=== PATIENT | female | born 1955 | race Caucasian/White ===

== ENCOUNTER 2025-04-29 13:30 | Outpatient (CLI) | payer MEDICARE, BC, SELFPAY ==
--- OUTSIDE RECORDS SUMMARY | 2022-03-07 08:46 | XMS_ITS | Continuity of Care Document ---
Author Organization [facility] Address [address] [place] [address] Phone Care Team Providers Care Braze Operator Name Role Phone Celso Pace MD Unavailable Unavailable Allergies, Adverse Reactions, Alerts Substance Reaction Status Criticality No Known Allergies Active No Inform ation Medications Medication Instructions Dosage Effective Dates (start - stop) Status Comments fluoxetine 10 mg capsule take 1 capsule by oral route every day 10 MG - Active aspirin 325 mg tablet take 2 tablet by o ral route 5 times every day 650 MG - Active cranberry 400 mg capsule - Active oxycodone 5 mg tablet take 1 Tablet by O RAL route 3 times every day as needed for moderate to severe pain 5 - Active simvastatin 20 mg tablet take 1 tablet by oral route every day in the evening 20 MG - Active Procedures Procedure Date New Pt Eval 45 Min Advance Directives Directive Yes / No Effective Date File Name No Information Encounters Encounter Description Practice Location Reason(s) For Visit Diagnoses Date Provider Providers Copied on Encounter [facility], [address], [place], [place], [id number], [place] tel:[phone] [facility] No Information Sanjeev Houston. [address], [place], [place], [id number], [place]. tel:[phone] Referring Provider: Dalton Rowland MD, [address] [facility], [place], [address]. tel:[phone] New Pt Eval 45 Min [facility], [address], [place], [place], [id number], [place] tel:[phone] [facility] back pain (chief complaint) Low back pain, unspecifiedRadiculo ratna, lumbar regionPain in hipPostlaminectomy syndrome [address] [place]. [address] [facility] [address], [place], [id number], [place]. tel:[phone] Referring Provider: Dalton Rowland MD, [address] [facility], [place], [address]. tel:[phone] Family History Family Member Type Diagnosis Age At Onset Father Problem stroke Brother Problem Other Sister Problem malignant neoplasm of male b reast Sister Problem Other Mother Problem Other Payers Payer name Insurance type Covered alliance party ID Jose soto(s) [employer] Cross Medicare 16 [id number] Social History Type Description Quantity Date Captured Comments Sex Female Smoking Status No Information Chief Complaint And Reason For Visit No Information Reason For Referral Reason For Referral No Information Plan Of Treatment Date Type Action Status Goal Tobacco cessation counseling completed Referral Ordered: Cara BAUTITSA, PHD, [place] [facility] : Neurological Surgery (related to Low back pain, unspecified) ordered Referral Referred To: [address] [place], [phone] Ordered: Referrals: Neurology ordered Referral Referred To: transforaminal LESI Ordered: transforaminal LESI on both sides L2-3 ordered Referral Ordered: Disclose - Sam Med Recs: Send patient history to Dr. Marroquin ordered Referral Referred To: Cara BAUTISTA, PHD, [place] [address] [facility] [address] [place], [phone] Ordered: Referrals: [facility] : Neurological Surgery. Cara BAUTISTA, PHD, [place] ordered Referral Ordered: Obtain - Outside Med Recs: Obtain medical records fro Dr. Still at [facility] ordered History Of Present Illness Encounter Date Complaint History Of Prese nt Illness back pain Location of pain is lower back. Pain is radiated to the left calf, right calf, left foot, right foot, left thigh and right thigh.The patient describes the pain as an ache, burning and sharp. Symptoms are aggravated by bending, daily activities, lifting, sitting, standing and walking. Symptoms are relieved by ice and pain meds/drugs. Functional Status Date Functional Assessmen t No Information Instructions Date Instruction Additional Infor mation Same plan of care as statement for above diagnosis, no changes Related to Postlaminectomy syndrome Same plan of care as statement for above diagnosis, no changes Related to Radiculopathy, lumbar region Same plan of care as statement for above diagnosis, no changes Related to Pain in hip - Order a transforam inal lumbar epidural steroid injection at bilateral L2,3- Will send a referral to Dr. Marroquin for a second opinion - Meet with implant team to discuss implantable devices - Obtain records from Dr. Still at [facility] - Follow up with CHERYL in one month Related to Low back pain, unspecified Assessments Type Assessment Date No Information Patient Care Teams Name Effective Dates (start - stop) Status Members No Information
--- OUTSIDE RECORDS SUMMARY | 2025-04-02 16:23 | XMS_ITS | Encounter Summary ---
Author Organization 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 Bleeding did stop after about an hour but restarted a half hour ago at 1545. Denies hitting the nose and pain. Encounter Details Date Type Department Care Team (Late st Contact Info) Description 04/02/2025 4:23 PM CDT - 04/02/2025 5:37 PM CDT Emergency [facility] [address] [place] [phone] Arcadio Herrmann APRN, C.N.P., D.N.P. 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N.P. - 04/02/2025 5:11 PM CDT Leave your nose alone for 2 days. Do not sneeze, blow your nose or touch/manipulate your nose. If packing was placed, leave this in place until appropriate follow up. If you start bleeding again, sit in a chair, apply nose clips as shown, place ice or cool pack across bridge of nose and face and wait for 20 minutes. Remove clips. If you continue to bleed, return to the ED or follow up with PMD. After 2 days, follow the nasal hygiene instructions below. Nasal Hygiene: The nose has many positive effects on the air you breathe in that you may not be aware of. - Temperature regulation - Filtration and removal of particulate matter - Humidification - Defense against infections There are several things you can do to help keep your nose healthy. Foremost is nasal hygiene. This will help with your nose's natural function and keep it moist and healthy. 1. Use nasal saline daily. You can buy small bottles of this over the counter at the drug store or grocery store. Some brand names are Loyal, Sea Mist, [place]. Apply 2-3 sprays each nostril several times a day. If your nose feels dry or have had recent nasal surgery, try to use it every couple of hours. There is no medicine in it so it can be used as often as you like. Do NOT use the sprays containing decongestants. The appropriate way to apply nasal sprays: Place the nozzle just inside your nostril and point it towards the corner of your eye. Often it is helpful to use the right hand to spray into the left nasal cavity and use the left hand to spray into the right side. 2 Use Vaseline petroleum jelly or Aquaphor. You can apply this gently to each nostril 2-3 times a day to promote moisturization for your nose. These can all be bought over the counter. 3. Consider using a humidifier at home. If your nose feels dry and/or you have frequent nosebleeds,you can buy a humidifier for your home. Be cautious in using these if you have mold allergies. 4. Avoid excessive manual manipulation of your nose and nostrils. Frequent rubbing of your nostrilsand the passing of tissues or fingers in your nostrils may aggravate nasal irritation from dryness and nosebleeds. Any further bleeding r apply the nasal clamp, wait for 30 minutes, if you bleed after 30 minutes with a nasal clamp off, he will have to return to the emergency department. Thank you for utilizing [facility] for your care! * Attachments The following attachments cannot be sent through Care Everywhere. * Nosebleed Adult (Angolan) documented in this encounter Medications at Time of Discharge aspirin [address] tablet Take 1 tablet by mouth daily. cranberry 400 mg capsule Cranberry oral tablet See Instructions, pateint unsure of dose but takes 3 pills in am and 3 pills in pm 09/21/2012 FLUoxetine (PROzac) 40 mg capsule 01/24/2025 gabapentin (Neurontin) 100 mg capsule Take 100 mg by mouth. 05/19/2024 oxyCODONE (Roxicodone) 10 mg IR tablet Take 10 mg by mouth daily as needed. 08/11/2024 simvastatin (Zocor) 40 mg tablet Take one a day for cholesterol 06/22/2014 FLUoxetine (PROzac) 20 mg capsule Take 20 mg by mouth daily. documented as of this encounter Procedure Notes * Arcadio Herrmann APRN, C.N.P., D.N.P. - 04/02/2025 4:45 PM CDTAssociated Order(s): Epistaxis Management Procedure Epistaxis Management Performed by: Arcadio Herrmann APRN, C.N.P., oMnse.N.P. Authorized by: Arcadio Herrmann APRN, Susy.N.P., D.N.P. PROCEDURE DETAILS Treatment method: anterior pack and nasal clamp Treatment complexity: simple Subsequent visit: no CONSENT Consent obtained: verbal Consent given by: patient The benefits, risks and alternatives to the procedure and the potential need for sedation or anesthesia as well as the names, roles, and responsibilities of healthcare team members performing significant interventional tasks were discussed with the patient and/or decision maker. UNIVERSAL PROTOCOL All relevant documentation and testing were reviewed and available. All required blood products, implants, devices and or special equipment were made available as applicable. Pre-procedure verification was conducted and the correct site was marked if required. A fire risk and smoke assessment were done as applicable. The procedural time-out to verify correct patient, correct side/site, and procedure was conducted prior to performing the procedure and confirmed in a procedural pause. PRE-PROCEDURE DETAILS Indications: nose bleed Treatment site: left anterior and left septum SEDATION / ANESTHESIA Anesthesia method: topical application Topical anesthesia: Lidocaine with epinephrine, Afrin, TXA, mixed one-to-one. POST-PROCEDURE DETAILS Assessment: bleeding stopped Procedure completed successfully: yes Complications: no immediate complication Arcadio Herrmann APRN, Susy.N.P., D.N.P. 04/02/25 1646 documented in this encounter ED Notes * Arcadio Herrmann APRN, Susy.N.P., D.N.P. - 04/02/2025 4:22 PM CDT Images from the original note were not included. CHIEF COMPLAINT/REASON FOR VISIT Epistaxis (Nose Bleed) (Patient had a nose bleed that began this morning at 0300. Bleeding did stopafter about an hour but restarted a half hour ago at 1545. Denies hitting the nose and pain. ) HISTORY OF PRESENT ILLNESS Patient presents to the emergency department with a history of a fractured neck with a nosebleed. She had patient states she was awakened at 3 in the morning with some postnasal drip. She got up and spit in the bathroom, noticed it was bright red blood. Then she started bleeding from her left nares. After about 20 minutes of just leaving it alone the bleeding stopped, she went back to bed, she got up today, was just lying on the couch and then she again felt bleeding in the back of her throat. This is about 3:00 a.m. this afternoon, and it continued to bleed since that time. Patient has had adifficulty getting it to stop. She presents now to the emergency department for further evaluation and care. On arrival to the emergency department nursing had the patient blow out all of her clots, and applied a epistaxis nasal clamp. Patient denies any anticoagulation history. She states this is her first bloody nose. History provided by: Patient interpreter for the deaf needed/used: no REVIEW OF SYSTEMS Constitutional: Negative for chills, diaphoresis, fatigue and fever. HENT: Positive for nosebleeds. Negative for sinus pressure and sore throat. Respiratory: Negative for cough, chest tightness and shortness of breath. Cardiovascular: Negative for chest pain. Gastrointestinal: Negative for abdominal pain, constipation, diarrhea, nausea and vomiting. Genitourinary: Negative for dysuria, frequency and urgency. Musculoskeletal: Negative for arthralgias and myalgias. Skin: Negative for rash. Neurological: Negative for dizziness, weakness and headaches. Hematological: Negative for adenopathy. Does not bruise/bleed easily. All other systems reviewed and are negative. Allergies Reviewed in medical record Current Medications Reviewed in Medical Record. PAST HISTORY Medical Medical History[1] Problem List[2] Surgical Surgical History[3] Family Reviewed in Medical Record Social History Social History Tobacco Use Smoking status: Every Day Current packs/day: 1.00 Types: Cigarettes Smokeless tobacco: Never Substance Use Topics Alcohol use: No Social History Substance and Sexual Activity Drug Use Yes Types: Marijuana Comment: Medical marijuana OBJECTIVE Initial Vital Signs / Weights Initial Vitals [04/02/25 1630] Temperature 36.7 ??C Pulse Rate 79 Heart Rate Resp Rate 22 Blood Pressure (!) 141/96 SpO2 95 % Pain Score 0 - No pain Wt Readings from Last 3 Encounters: 04/02/25 76.9 kg 09/06/24 74.8 kg 09/23/24 75 kg PHYSICAL EXAMINATION Constitutional: Nursing note and vitals reviewed. No distress. HENT: Nose: Nasal discharge present. Mouth/Throat: Oropharynx is clear and moist. Mucous membranes are moist. No tonsillar exudate. Presents with left naris bleeding. Nursing applied and nasal clamp for epistaxis, on my examinationthe bleeding had slowed considerably. Please see procedure note. No bleeding in the back of her throat. No bleeding noted the right nares. Blood pressure is 156/75. Eyes: Conjunctivae are normal. Pupils are equal, round, and reactive to light. Neck: Neck supple. Cardiovascular: Normal rate. Pulses are strong and palpable. Capillary refill: takes less than 3 seconds Pulmonary/Chest: Effort normal. No respiratory distress. Musculoskeletal: General: Normal range of motion. Cervical back: Normal range of motion and neck supple. Lymphadenopathy: She has no cervical adenopathy. Neurological: Alert and oriented to person, place, and time. Skin: Skin is warm, dry and intact. Psychiatric: She has a normal mood and affect. DIAGNOSTICS Procedures Epistaxis management See separate procedure note. ED COURSE ED Course as of 04/02/25 173 Dinorah April 02, 2025 162 I performed my initial evaluation of the patient. We discussed Emergency Department course including testing, treatment, and potential disposition based on findings. 1650 TXA, lidocaine with epinephrine, Afrin all mixed one-to-one on a cotton pledget was inserted into her left naris and then re clamp with an epistaxis clamp for 30 minutes for bleeding control as well as anesthesia. 1707 Packing removed from the left naris, no active bleeding appreciated. No clots sign or area to go after with cautery. As long as that is not bleeding will leave it be. Patient was given a clean nasal clamp, we discussed how to stop bleeding moving forward with blowing the blood clots out, applying the nasal clamp, and then ice over the nose and forehead, leaving that in place for 30 minutes by the clock, and removing the clamp after that, if she continues to bleed she will have to return tothe emergency department. 1726 No further nasal or bleeding noted in the back of the throat. I discussed the plan for discharge with the patient, and patient/family is agreeable. I discussed with patient the utility, limitations, and findings of the exam/interventions/studies done during this visit as well as the list of dif ferential diagnosis. Patient understands provisional nature of this diagnosis and need for follow up. We discussed the plan of care, including supportive cares. We also discussed symptoms to monitor and symptoms that should prompt them to return for re-evaluation including new or worsening symptoms. All questions and concerns addressed. Patient to be discharged by RN. Final Diagnoses: as of 04/02/251736 Epistaxis - Left nares INTERVENTIONS Medications oxymetazoline 0.05 % nasal spray 2 spray (Afrin) (2 sprays each nostril Given 04/02/251732) lidocaine-EPINEPHrine 1 %-1:100,000 injection 10 mL (Xylocaine w/epi) (10 mL infiltration Given 04/02/251732) tranexamic acid injection 500 mg (Cyklokapron) (500 mg inhalation Given 04/02/251732) MEDICAL DECISION MAKING Assessment and Plan Patient presents to the emergency department with epistaxis. Symptoms for started at 3 in the morning. It stopped after about 20 minutes, then restarted at 3:00 a.m. this afternoon. She has been unable to get it to stop, so she presented to the emergency department for further evaluation. Differential diagnosis includes but not limited to; nasal foreign body, nasal trauma, polyps, spontaneous klebsiella plexus bleed, supratherapeutic INR with anticoagulant therapy, sinusitis, tumor, or others. The patient forcibly blew their nose into Kleenex to remove clotted blood. A 1 inch derick soaked inAfrin spray mixed with 1 G of TXA and 10 ml of 1% lidocaine with epi (mixed 1:1) was then packed into the appropriate nare. Nasal clamp applied. This was left in place for 45 minutes. The bleeding site was found to be located left anterior nares. Hemostasis was achieved with TXA, Afrin, lidocaine with epi on a cotton pledget and then packed in the left nares Observed for 20 minutes, no further bleeding noted in posterior pharynx. Patient ok for discharge and clinic follow up as needed Red flag symptoms were also reviewed with the patient that should return them to the ED including but not limited to; reoccurrence of bleeding if not controlled with 20 minutes of nasal clamping, fever, chills, sweats, headache or any other worrisome symptoms. . DIFFERENTIAL DIAGNOSES As above. PROBLEMS ADDRESSED THIS VISIT As above. Care is significantly affected by the following Social Determinants of Health: Housing in security. I reviewed the following external records: primary care records, prior outpatient labs, prior outpatient radiology tests and inpatient records. DIAGNOSIS Final diagnoses: [R04.0] Epistaxis - Left nares DISPOSITION Home or Self Care DISCHARGE/TRANSFER VITAL SIGNS Vitals: 04/02/25 1715 BP: 131/69 Pulse: 75 Resp: Temp: SpO2: 94% ED DISCHARGE MEDS ED Prescriptions None FOLLOW UP Contact Information for Follow-ups None Reported, Pcp Specialty: Family Medicine, Internal Medicine, Geriatrics, Women's Health, Internal Medicine Relationship: PCP - General Next Steps: Follow up in 1 week(s) Instructions: As needed Arcadio Herrmann, LANDEN, RANGELAND MANAGEMENT SPECIALIST, AEROSPACE STRESS ENGINEER-C, AGACNP-BC, ENP-C Emergency Medicine [1] History reviewed. No pertinent past medical history. 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 04/02/25 1737 documented in this encounter Plan of Treatment Not on file documented as of this encounter Procedures Procedure Name Priority Date/Time Associated Diagnosis Comments EPISTAXIS MANAGEMENT Routine 04/02/2025 4:45 PM CDT documented in this encounter Results * Epistaxis Management (04/02/2025 4:45 PM CDT) Narrative Arcadio Herrmann APRN, C.N.P., D.N.P. - 04/02/2025 4:45 PM CDT Arcadio Herrmann APRN, C.N.P., D.N.P. 04/02/2025 4:46 PM Epistaxis Management Performed by: Arcadio Herrmann APRN, C.N.P., Monse.N.P. Authorized by: Arcadio Herrmann APRN, C.N.P., D.N.P. PROCEDURE DETAILS Treatment method: anterior pack and nasal clamp Treatment complexity: simple Subsequent visit: no CONSENT Consent obtained: verbal Consent given by: patient The benefits, risks and alternatives to the procedure and the potential need for sedation or anesthesia as well as the names, roles, and responsibilities of healthcare team members performing significant interventional tasks were discussed with the patient and/or decision maker. UNIVERSAL PROTOCOL All relevant documentation and testing were reviewed and available. All required blood products, implants, devices and or special equipment were made available as applicable. Pre-procedure verification was conducted and the correct site was marked if required. A fire risk and smoke assessment were done as applicable. The procedural time-out to verify correct patient, correct side/site, and procedure was conducted prior to performing the procedure and confirmed in a procedural pause. PRE-PROCEDURE DETAILS Indications: nose bleed Treatment site: left anterior and left septum SEDATION / ANESTHESIA Anesthesia method: topical application Topical anesthesia: Lidocaine with epinephrine, Afrin, TXA, mixed one-to-one. POST-PROCEDURE DETAILS Assessment: bleeding stopped Procedure completed successfully: yes Complications: no immediate complication Arcadio Herrmann APRN, C.N.P., D.N.P. PROCEDURE/[place] SURGICAL ORDERABLES Final Result documented in this encounter Visit Diagnoses Diagnosis Epistaxis- Primary documented in this encounter Administered Medications Inactive Administered Medications - up to 3 most recent administrations Medication Order MAR Action Action Date Dose Rate Site lidocaine-EPINEPHrine 1 %-1:100,000 injection 10 mL (Xylocaine w/epi) 10 mL, infiltration, Once, On Dinorah 04/02/25 at 1627, For 1 dose Given 04/02/2025 5:33 PM CDT 10 mL oxymetazoline 0.05 % nasal spray 2 spray (Afrin) 2 spray, each nostril, Once, On Dinorah 04/02/25 at 1627, For 1 dose, Do not use for more than 3 days. Given 04/02/2025 5:33 PM CDT 2 sprays tranexamic acid injection 500 mg (Cyklokapron) 500 mg, inhalation, Once, On Dinorah 04/02/25 at 1627, For 1 dose, Intranasal for epistaxis Given 04/02/2025 5:33 PM CDT 500 mg documented in this encounter Active and Recently Administered Medications Times are shown in CDT. Scheduled Medication Order 03/31/2025 04/01/2025 04/02/2025 lidocaine-EPINEPHrine 1 %-1:100,000 injection 10 mL (Xylocaine w/epi) (COMPLETED) 10 mL, infiltration, Once, On Dinorah 04/02/25 at 1627, For 1 dose 1733 (Given - Provid er: Kimi Jo.S.N., R.N.) oxymetazoline 0.05 % nasal spray 2 spray (Afrin) (COMPLETED) 2 spray, each nostril, Once, On Dinorah 04/02/25 at 1627, For 1 dose, Do not use for more than 3 days. 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
--- OUTSIDE RECORDS SUMMARY | 2025-04-03 06:43 | XMS_ITS | Encounter Summary ---
Author Organization [facility] Address [address] [place] [address] Care Team Providers Care Head Of Marketing Adometry Name Role Phone Elsewhere, Pcp Primary Care Provider Unavailabl e Reason for Referral * Outpatient (Routine) - Authorized Specialty Diagnoses / Procedures Referred By Reji hatfield Referred To Contact Emergency Medicine Diagnoses Epistaxis Yanira Sheikh APRN, C.N.P. [address], [place] [address] Phone: tel: fax: [facility] Region Referral ID Status Reason Start Date Expiration Date V isits Requested Visits Authorized [id number] Authorized 04/03/2025 10/03/2026 1 1 Reason for Visit * Reason Comments Epistaxis (Nose Bleed) Patient returns w ith a nose bleed. Encounter Details Date Type Department Care Team (Late st Contact Info) Description 04/03/2025 6:43 AM CDT - 04/03/2025 8:16 AM CDT Emergency [facility] [id number] [phone] Tanner Andres, P.A.-C. [address] [phone] Yanira Sheikh APRN, C.N.P. 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 - 04/03/2025 7:33 AM CDT Plan Call to schedule follow up with ENT (they may be able to fit you in today). Nasal packing can rarely cause infection, septal perforation, or toxic shock syndrome. To help prevent this, start Augmentin twice daily for as long as the packing is present. Return immediately if you experience severe or persistent bleeding, fever, increasing pain, foul-smelling discharge, or difficulty breathing. Nasal clamp on anterior nose, and ice pack application to bridge, with leaning forward during acuteepistaxis. Continued humidification, 2 weeks BID bacitracin, indefinite use of BID Vaseline. Avoiding nose picking. Follow up as needed with pediatric ENT Nasal hygiene The following strategies will help decrease the risk for continued or recurrent epistaxis: 1. Avoid blood thinning medications, unless medically indicated 2. Avoid trauma to the nose. This includes irritation from exploring digits (nose picking) and excessive nose blowing. Educate patient to sneeze and cough with an open mouth, if possible. 3. Diligent blood pressure management. 5. Use a room humidifier or intermittent humidified blow by. Nasal cannulas should be avoided. Nasal cup, face tent, or open face masks are good alternatives. If patient requires oxygen via nasal cannula, ensure that the prongs are cut and removed flush with the tubing to decrease risk of nasal trau ma. 6. Vaseline to inside of nares bilaterally qhs- Apply Vaseline at the opening of each nare and pinch ointment upward. Do not apply with qtip or finger inside the nose. For acute epistaxis: 1. Apply several sprays of oxymetazoline (Afrin) nasal spray to bilateral nasal cavities (regardless of side of epistaxis) 2. Tilt patient head forward to allow blood to run out rather than aspirated/swallowed 3. Apply continuous pressure to the soft part of the nose, not the bony dorsum, for 20 minutes without release of pressure 4. Repeat the above x 2, stop when nosebleed abates Discharge Instructions for Patients with Nasal Packing Follow-up and Removal: If nonresorbable packing was placed, it should be removed by a healthcare professional within 48-72hours, or as directed. Do not attempt to remove it yourself. If resorbable packing was used, it will dissolve over time. Schedule a follow-up visit within 1 week to ensure proper healing and removal of any residual material.[1] Activity Restrictions: Avoid nose blowing, strenuous activity, heavy lifting, bending over, and digital manipulation (nosepicking) for at least 1 week. Sleep with your head slightly elevated to reduce bleeding risk. Walking and light activity are permitted, but avoid exercise or lifting over 10 pounds.[1-2] Nasal Care: Keep the nose and packing moist with saline (salt water) nasal sprays several times daily to reducecrusting and aid healing. Use a humidifier if possible to keep the air moist. If you need to sneeze, do so with your mouth open to reduce pressure in the nose.[1-2] Pain Management: Use acetaminophen (Tylenol) for pain. Avoid aspirin and ibuprofen, as they may increase bleeding risk unless otherwise instructed.[2] Signs and Symptoms to Watch For: Return immediately if you experience severe or persistent bleeding, fever, increasing pain, foul-smelling discharge, or difficulty breathing. If bleeding recurs, lean forward and pinch the soft part of the nose for 15-20 minutes. If bleedingdoes not stop, seek medical attention.[1] Complications: Nasal packing can rarely cause infection, septal perforation, or toxic shock syndrome. Routine antibiotics are not recommended unless specifically prescribed, as supported by the [place] Associationfor the Surgery of Trauma and recent cost-effectiveness analyses.[4-5] Recurrence: The risk of rebleeding is highest within the first 4 hours after packing removal and up to 1 week. Adhere strictly to follow-up and preventive measures to minimize recurrence.[2-3] If you have any questions or concerns, contact your healthcare provider promptly. 1.Epistaxis.Guy Velasquez. The [place] Journal of Medicine. 2020;384(10):944-951. doi:10.1056/NHELye9933235. 2.Clinical Practice Guideline: Nosebleed (Epistaxis).Sowmya DEMeeta S, Agustin SC, et al. Otolaryngology--Head and Neck Surgery : Official Journal of [place] Academy of Otolaryngology-Headand Neck Surgery. 2020;162(1_suppl):S1-S38. doi:10.1177/3978403129882452. 3.Intranasal Packs and Haemostatic Agents for the Management of Adult Epistaxis: Systematic Review.Theodora IZ, Glover GH, Natalia N, et al. The Journal of Laryngology and Otology. 2017;131(12):2506-6807. doi:10.1017/[id number]. 4.Antibiotic Prophylaxis in Injury: An [place] Association for the Surgery of Trauma Critical CareCommittee Clinical Consensus Document.Appelbaum RD, Carlo MS, Dwaine RB, et al. Trauma Surgery & Acute Care Open. 2023;9(1):h976980. doi:10.1136/xgwdq-[id number]. 5.A Clinical Decision Analysis for Use of Antibiotic Prophylaxis for Nonabsorbable Nasal Packing.Víctor X, Rehan BC, Gray AW, et al. Otolaryngology--Head and Neck Surgery : Official Journal of [place] Academy of Otolaryngology-Headand Neck Surgery. 2020;165(5):647-654. doi:10.1177/1663407001989687. * Attachments The following attachments cannot be sent through Care Everywhere. * Nosebleed Adult Loyb-wh-Swta (Malay) documented in this encounter Medications at Time [...] Take one a day for cholesterol 06/22/2014 amoxicillin-pot clavulanate (Augmentin) 875-125 mg per tabletIndications :Epistaxis Take 1 tablet by mouth 2 (two) times a day for 10 days. 20 tablet 04/03/2025 5 documented as of this encounter ED Notes * Yanira Sheikh APRN, C.N.P. - 04/03/2025 8:00 AM CDT Care of patient transferred to ut by Tanner Andres, P.A.-C.. Disposition pending observation. Refer to Tanner Andres, P.A.-C.'s note for further HPI, ROS and PE Briefly, Josef Phillips is a 69 y.o. with comorbidities including but not limited to smoking, COPD, AAA, depression, migraines, chronic pain. She presents to the emergency department for evaluation of nosebleed. Patient was evaluated yesterday and treated with TXA, lidocaine with epinephrine, Afrin packing. Once packing was removed she was observed and no further bleeding was noted. Patient states she had reoccurring bleeding this morning. Upon my arrival she had rhino rocket to left nares. She was observed x 60 minutes and discharged home. Reviewed above impression and recommendations with the patient. Plan to discharge home with nasal packing to left nares and Augmentin. Discussed symptomatic / supportive cares. We also discussed symptoms to monitor and symptoms that should prompt them to return for re-evaluation including severe or persistent bleeding, fever, increasing pain, foul-smelling discharge, or difficulty breathing. All questions answered to the best of my ability. Close follow-up PCP advised. Referral placed to assistwith appointment. -- History was obtained from: patient. Additionally history was obtained from medical record. director of first impressions used. N/A -- Nursing documentation and prior inpatient and outpatient records were reviewed in the electronicmedical record to facilitate decision making regarding patient care. -- Prescription management: Augmentin bid while packing is present. No changes to existing home medications. -- Social determinants of health: No barriers to care identified. VITAL SIGNS BP 130/67 Pulse 82 Temp 36.4 ??C (Temporal) Resp 24 Wt 78.4 kg SpO2 93% Final Diagnoses: as of 04/03/25 0816 Epistaxis Other Specified Disorders Of Nose And Nasal Sinuses Yanira Sheikh APRN, C.N.P. 04/03/25 0816 * Tanner Andres, P.A.BernardoC. - 04/03/2025 6:53 AM CDT SUBJECTIVE CHIEF COMPLAINT/REASON FOR VISIT Epistaxis (Nose Bleed) (Patient returns with a nose bleed. ) HISTORY OF PRESENT ILLNESS 69-year-old female presents ER with complaints of return of nosebleed. She was seen in this ER recently where she was placed on Afrin, TXA, and nasal clamp. She states the bleeding returned this morning. History provided by: Patient REVIEW OF SYSTEMS All pertinent systems reviewed and are negative except as discussed in HPI OBJECTIVE Initial Vitals [04/03/25 0644] Temperature 36.4 ??C Pulse Rate 100 Heart Rate Resp Rate 24 Blood Pressure 135/78 SpO2 93 % Pain Score 0 - No pain PHYSICAL EXAMINATION Constitutional: Nursing note and vitals reviewed. HENT: Head: Normocephalic and atraumatic. Nose: Nose normal. Mouth/Throat: Oropharynx is clear and moist. Mucous membranes are moist. Bleeding from left Manuel. Neck: Neck supple. Cardiovascular: Normal rate, regular rhythm, S1 normal, S2 normal and normal heart sounds. Pulmonary/Chest: Effort normal and breath sounds normal. Abdominal: Soft. Bowel sounds are normal. There is no abdominal tenderness. Musculoskeletal: Cervical back: Neck supple. Neurological: Alert and oriented to person, place, and time. Skin: Skin is warm. ASSESSMENT/PLAN Assessment and Plan Patient failed conservative treatment with Afrin, TXA, nasal clamping. We discussed the risk versusbenefit of other alternatives and patient is agreeable to nasal tampon. Nasal tampon it has been placed and patient has been observed in the emergency department. At shift change care is transitionedto oncoming provider. . Tanner Andres, P.A.-C. 04/03/25 0702 documented in this encounter Plan of Treatment Scheduled Referrals Name Type Priority Associated Diagnoses Order Schedule POST ED VISIT Otorhinolaryngology Outpatient Referral Routine Epistaxis Expected: 04/03/2025, Expires: 07/04/2026 documented as of this encounter Visit Diagnoses Diagnosis Epistaxis- Primary Other Specified Disorders Of Nose And Nasal Sinuses documented in this encounter Administered Medications Inactive Administered Medications - up to 3 most recent administrations Medication Order MAR Action Action Date Dose Rate Site ketorolac injection 15 mg (ToradoL) 15 mg, intramuscular, Once, On Sun04/03/25 at 0728, For 1 dose, Adult IV push rate: Over 15 seconds. Peds IV push rate: Over 1 minute. Doses > 15 mg IV/IM are discouraged due to lack of additional analgesic benefit. Given 04/03/2025 7:30 AM CDT 15 mg Right Deltoid oxymetazoline 0.05 % nasal spray 2 spray (Afrin) 2 spray, each nostril, Once, On Sun04/03/25 at 0728, For 1 dose, Do not use for more than 3 days. Given 04/03/2025 7:30 AM CDT 2 sprays Nose documented in this encounter Active and Recently Administered Medications Times are shown in CDT. Scheduled Medication Order 04/01/2025 04/02/2025 04/03/2025 ketorolac injection 15 mg (ToradoL) (COMPLETED) 15 mg, intramuscular, Once, On Sun04/03/25 at 0728, For 1 dose, Adult IV push rate: Over 15 seconds. Peds IV push rate: Over 1 minute. Doses > 15 mg IV/IM are discouraged due to lack of additional analgesic benefit. 0730 (Given - Provid er: Amber Louis, R.N.) oxymetazoline 0.05 % nasal spray 2 spray (Afrin) (COMPLETED) 2 spray, each nostril, Once, On Sun04/03/25 at 0728, For 1 dose, Do not use for more than 3 days. 0730 (Given - Provid er: Amber Louis, R.N.) documented in this encounter Care Teams Head Of Marketing Adometry Relationship Specialty Start Date End Date Elsewhere, Pcp PCP - General Internal Medicine 04/03/25 documented as of this encounter
--- OUTSIDE RECORDS SUMMARY | 2025-04-03 09:32 | XMS_ITS | Encounter Summary ---
Author Organization [facility] Address [address] [place] [address] Care Team Providers Care Customer Care Agent Name Role Phone Elsewhere, Pcp Primary Care Provider Unavailabl e Reason for Visit * Reason Comments Epistaxis (Nose Bleed) Returns with epis taxis and vomiting blood Encounter Details Date Type Department Care Team (Late st Contact Info) Description 04/03/2025 9:32 AM CDT - 04/03/2025 10:56 AM CDT [facility] [address] [place] [phone] Yanira Sheikh, CAR REPAIRER, C.N.P. 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 20 tablet 04/03/2025 documented as of this encounter ED Notes * Yanira Sheikh, CONCHITA, C.N.P. - 04/03/2025 9:40 AM CDT SUBJECTIVE CHIEF COMPLAINT/REASON FOR VISIT Epistaxis (Nose Bleed) (Returns with epistaxis and vomiting blood) HISTORY OF PRESENT ILLNESS History provided by: Medical records, patient and significant other seismic interpreter needed/used: no REVIEW OF SYSTEMS HENT: Positive for nosebleeds. Gastrointestinal: Positive for vomiting. OBJECTIVE Initial Vitals Temperature 04/03/25 1003 36.5 ??C Pulse Rate 04/03/25 1000 88 Heart Rate -- Resp Rate 04/03/25 1007 20 Blood Pressure 04/03/25 1000 151/74 SpO2 04/03/25 1000 90 % Pain Score 04/03/25 1004 10 - Worst possible pain PHYSICAL EXAMINATION Constitutional: Nursing note and vitals reviewed. She is cooperative. HENT: Head: Atraumatic. Nose: Epistaxis (Reoccurring bleeding noted to posterior oropharynx, patient gagging intermittently, left nares packing remains in place (7.5 cm ant/post)) is observed. Mouth/Throat: Oropharynx is clear and moist. Mucous membranes are moist. Eyes: Conjunctivae are normal. Neck: Neck supple. Cardiovascular: Normal rate. Extremities warm and well perfused No edema Pulmonary/Chest: Effort normal. No respiratory distress. Abdominal: Normal appearance. Musculoskeletal: Cervical back: Neck supple. Comments: Moving arms and legs per baseline ambulatory Neurological: Alert. Normal speech. Skin: No rash (on exposed skin) noted. ASSESSMENT/PLAN Josef Phillips is a 69 y.o. with [...] had rhino rocket to left nares. She wasobserved x 60 minutes and discharged home. She returns 2 hours later with recurring bleeding, causing gagging and subsequent intermittent vomiting. She has hematemesis noted, clotted blood, likely from swallowing blood the past two episodes. She appears to have recurring bleeding noted on evaluation of posterior oropharynx, no blood noted from right nares. Packing remains in place to left nares, no bleeding from the nares noted. Patient is not on anticoagulation Unfortunately anterior posterior, 7.5 cm rhino rocket packing already implemented. Uncontrolled bleeding persists, recommend ENT consult which patient will need to transfer for. She is agreeable to transfer. Given H&E, considered anticoagulation, use of aspirin/NSAIDs, anterior or posterior epistaxis We discussed above impressions and concerns. Review ED Course. ED Course as of 04/03/25 1029 SunApril 03, 2025 0933 Contacted [facility] for ED to ED transfer request [phone] Accepted for transfer to [facility] [place] Maxine Rodriguez M.D. EMS to transfer to emergency department Final Diagnoses: as of 04/03/25 1029 Epistaxis Reviewed above impression and recommendations with the patient. Transfer to [facility] ED recommended and patient is agreeable. -- History was obtained from: patient. Additionally history was obtained from medical record. seismic interpreter used. N/A -- Nursing documentation and prior inpatient and outpatient records were reviewed in the electronicmedical record to facilitate decision making regarding patient care. -- I personally reviewed by visualization, independent interpretation, of labs as noted above. -- Consultation: Tele EM Dr Rodriguez / ENT: Yanira Lagos APRN, C.N.P. 04/03/25 1029 documented in this encounter Plan of Treatment Not on file documented as of this encounter Procedures Procedure Name Priority Date/Time Associated Diagnosis Comments CBC WITH DIFFERENTIAL, B STAT 04/03/2025 9:47 AM CDT BASIC METABOLIC PANEL, S/P STAT 04/03/2025 9:47 AM CDT documented in this encounter Results * (ABNORMAL) Basic Metabolic Panel (04/03/2025 9:47 AM CDT) Potassium, P 4.4 3.6 - 5.2 mmol/L 04/03/2025 10:06 AM CDT [facility] Sodium, P 138 135 - 145 mmol/L 04/03/2025 10:06 AM CDT [facility] Chloride, P 104 98 - 107 mmol/L 04/03/2025 10:06 AM CDT [facility] Bicarbonate, P 18(L) 22 - 29 mmol/L 04/03/2025 10:06 AM CDT [facility] Anion Gap, P 16(H) 7 - 15 04/03/2025 10:06 AM CDT [facility] BUN (Blood Urea Nitrogen), P 13 6 - 21 mg/dL 04/03/2025 10:06 AM CDT [facility] Creatinine 0.74 0.59 - 1.04 mg/dL 04/03/2025 10:06 AM CDT [facility] Estimated GFR (eGFR) 87 >=60 mL/min/BSA 04/03/2025 10:06 AM CDT CNFL Comment: Estimated GFR calculated using the 2020 CKD_EPI creatinine equation. Calcium, Total, P 9.4 8.8 - 10.2 mg/dL 04/03/2025 10:06 AM CDT CNFL Glucose, P 129 70 - 140 mg/dL 04/03/2025 10:06 AM CDT [facility] Blood (Blood, Venous) 04/03/2025 9:47 AM CDT 04/03/2025 9:49 AM CDT us Yanira Sheikh APRN C.N.P. LAB BLOOD ADD-O N Final Result [facility] [address] [place] [id number], [facility] CN[facility] [place] [address] * (ABNORMAL) CBC with Differential, Blood (04/03/2025 9:47 AM CDT) Hemoglobin 15.3(H) 11.6 - 15.0 g/dL 04/03/2025 9:52 AM CDT CNFL Hematocrit 44.0 35.5 - 44.9 % 04/03/2025 9:52 AM CDT CNFL Erythrocytes 5.09 3.92 - 5.13 x10(12)/L 04/03/2025 9:52 AM CDT CNFL MCV 86.4 78.2 - 97.9 fL 04/03/2025 9:52 AM CDT CNFL RBC Distrib Width 12.9 12.2 - 16.1 % 04/03/2025 9:52 AM CDT CNFL Platelet Count 263 157 - 371 x10(9)/L 04/03/2025 9:52 AM CDT CNFL Leukocytes 13.9(H) 3.4 - 9.6 x10(9)/L 04/03/2025 9:52 AM CDT CNFL Neutrophils 9.81(H) 1.56 - 6.45 x10(9)/L 04/03/2025 9:52 AM CDT CNFL Lymphocytes 3.25(H) 0.95 - 3.07 x10(9)/L 04/03/2025 9:52 AM CDT CNFL Monocytes 0.75 0.26 - 0.81 x10(9)/L 04/03/2025 9:52 AM CDT CNFL Eosinophils 0.04 0.03 - 0.48 x10(9)/L 04/03/2025 9:52 AM CDT CNFL Basophils 0.04 0.01 - 0.08 x10(9)/L 04/03/2025 9:52 AM CDT CNFL Blood (Blood, Venous) 04/03/2025 9:47 AM CDT 04/03/2025 9:49 AM CDT us Yanira Sheikh APRN CJulietaNJulietaPJulieta LAB BLOOD ADD-O N Final Result [facility] [address] [place] [address], [facility] in [address] [address] documented in this encounter Visit Diagnoses Diagnosis Epistaxis- Primary documented in this encounter Administered Medications Inactive Administered Medications - up to 3 most recent administrations Medication Order MAR Action Action Date Dose Rate Site HYDROmorphone injection 0.5 mg (Dilaudid) 0.5 mg, intravenous, Once, On Sun04/03/25 at 1020, For 1 dose Given 04/03/2025 10:22 AM CDT 0.5 mg NaCl 0.9 % bolus 1,000 mL 1,000 mL, intravenous, at 1,000 mL/hr, Administer over 1 Hours, Once, On Sun04/03/25 at 0934, For 1 dose New Bag 04/03/2025 9:46 AM CDT 1,000 mL 1000 mL/hr ondansetron (PF) injection 4 mg (Zofran) 4 mg, intravenous, Once, On Sun04/03/25 at 0934, For 1 dose Given 04/03/2025 9:47 AM CDT 4 mg pantoprazole injection 40 mg (Protonix) 40 mg, intravenous, Once, On Sun04/03/25 at 0934, For 1 dose, Administer IV push over 2 minutes. Add 10 mL NS to 40 mg vial for a final concentration of 4 mg/mL. Given 04/03/2025 9:50 AM CDT 40 mg sodium chloride 0.9 % injection 2-10 mL 2-10 mL, intravenous, As needed, line care, Starting on Sun04/03/25 at 0933 documented in this encounter Active and Recently Administered Medications Times are shown in CDT. Scheduled Medication Order 04/01/2025 04/02/2025 04/03/2025 HYDROmorphone injection 0.5 mg (Dilaudid) (COMPLETED) 0.5 mg, intravenous, Once, On Sun04/03/25 at 1020, For 1 dose 1022 (Given - Provid er: Amber Louis R.N.) NaCl 0.9 % bolus 1,000 mL (COMPLETED) 1,000 mL, intravenous, at 1,000 mL/hr, Administer over 1 Hours, Once, On Sun04/03/25 at 0934, For 1 dose 0946 (New Bag - Prov ider: Ludivina Lopez R.N.)1046 (Due: Stopped - Provider: Ludivina Lopez R.N.) ondansetron (PF) injection 4 mg (Zofran) (COMPLETED) 4 mg, intravenous, Once, On Sun04/03/25 at 0934, For 1 dose 0947 (Given - Provid er: Ludivina Lopez R.N.) pantoprazole injection 40 mg (Protonix) (COMPLETED) 40 mg, intravenous, Once, On Sun04/03/25 at 0934, For 1 dose, Administer IV push over 2 minutes. Add 10 mL NS to 40 mg vial for a final concentration of 4 mg/mL. 0950 (Given - Provid er: Ludivina Lopez R.N.) tranexamic acid injection 500 mg (Cyklokapron) 500 mg, topical, Once, On Sun04/03/25 at 0941, For 1 dose, Soak 3-4 pledgets in 5 mL (500 mg) and apply to affected nare. 0941 (Due) PRN Medication Order 04/01/2025 04/02/2025 04/03/2025 sodium chloride 0.9 % injection 2-10 mL(Linked Group 1) 2-10 mL, intravenous, As needed, line care, Starting on Sun04/03/25 at 0933 Linked Groups Order Group 1: Place peripheral IV: No upper extremity site restrictions (CANCELED) Upper extremity site restriction: No upper extremity site restrictions, Quantity of PIVs requested: One, STAT, Once, On Sun04/03/25 at 0934, For 1 occurrence And sodium chloride 0.9 % injection 2-10 mLJump to med 2-10 mL, intravenous, As needed, line care, Starting on Sun04/03/25 at 0933 documented in this encounter Care Teams Customer Care Agent Relationship Specialty Start Date End Date Elsewhere, Pcp PCP - General Internal Medicine 04/03/25 documented as of this encounter
--- OUTSIDE RECORDS SUMMARY | 2025-04-03 11:22 | XMS_ITS | Encounter Summary ---
Author Organization [facility] Address [address] [place] [id number] Care Team Providers Care Country Singer Name Role Phone Elsewhere, Pcp Primary Care Provider Unavailabl e Reason for Visit * Reason Comments Epistaxis (Nose Bleed) Encounter Details Date Type Department Care Team ([facility] st Contact Info) Description 04/03/2025 11:22 AM CDT - 04/03/2025 1:47 PM CDT Emergency [facility] Emergency Department [address] [place] [phone] Manohar Bolanos M.D. 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 - 04/03/2025 1:36 PM CDT You were seen in the [facility] Emergency Department for epistaxis (nosebleed). You were seen by our ENT team, who packed the nose. They recommend using saline spray four times daily for the next two weeks. Please see the attached information sheet for further recommendations for care. If you begin to bleed again, please use Afrin copiously in the nose, clamp for 15 minutes, and thenrepeat a second time. If you continue to bleed, please return to the ED. Please return to the ED if you experience worsening bleeding, fever, chills, vomiting, lightheadedness, or any other worrisome symptoms. This emergency visit to the hospital is not a substitute for comprehensive and ongoing medical care. In most cases, you must let your primary care provider evaluate you again. Call your primary care provider today to advise them of your ED visit and arrange for outpatient follow up. Tell your provider about any new or lasting problems. * Attachments The following attachments cannot be sent through Care Everywhere. * Nosebleed Adult (Citizen Of [place]) documented in this encounter Medications at Time [...] mg by mouth daily as needed. 08/11/2024 oxymetazoline (Afrin) 0.05 % nasal spray Administer 2 sprays into each nostril 2 (two) times a day. 30 mL 04/03/2025 5 simvastatin (Zocor) 40 mg tablet Take one a day for cholesterol 06/22/2014 amoxicillin-pot clavulanate (Augmentin) 875-125 mg per tabletIndications :Epistaxis Take 1 tablet by mouth 2 (two) times a day for 10 days. 20 tablet 04/03/2025 5 documented as of this encounter Consult Notes * Paty Butt M.D. - 04/03/2025 1:47 PM CDT OTORHINOLARYNGOLOGY ED CONSULT Chief Complaint: Epistaxis History of Present Illness: Josef Phillips is a 69 y.o. female who presented to the [facility] ED via ambulance from [facility] with concern for epistaxis. In the ED, providers evaluated Josef Phillips, and found epistaxis, and ENT was thus consultedfor control of epistaxis. Ms. Phillips states that she has been seen 3 times for a nosebleed in [place], twice today. She initially presented to [place] this morning. A rhino rocket was placed in her left nares, and she was discharged home. Patient states that shortly after arriving at home, she began bleeding through the right nostril and she re-presented to the [place] ED. she was subsequently transferred to [facility] for ENT evaluation. When I arrived to see the patient in the ED, she had a rhino rocket in place in the left nostril. She was not actively bleeding. She did endorse pain in her left nostril and a left-sided headache. She states she has not had nosebleeds in the past. She denies recent trauma to the nose, history of sinus surgery, significant straining in the last several days, hypertension, or other inciting event. She she does take a daily baby aspirin, but is not otherwise anticoagulated. Past Medical History: Medical History[1] Family History: Family History[2] Physical Exam: Vital Signs: Vitals: 04/03/25 1300 BP: 142/69 Pulse: 69 Resp: Temp: SpO2: 94% I removed the rhino rocket from the left nares. Anterior rhinoscopy revealed normal appearing inferior turbinates. The left anterior septum appeared irritated, with visible friable vessels. There areno excoriations. Right anterior nasal septum with dried blood. Otherwise normal-appearing without ir ritation or excoriations. Minimal oozing from left nares. No active epistaxis. No purulent discharge. No obvious polyps visualized. Septum appeared midline. Dried blood in the posterior oropharynx and in the oral cavity. No active dripping of blood from the nasopharynx. No concerns for airway compromise. Assessment/Plan: Problem List[3] Josef Phillips is a 69 y.o. female who is presenting with epistaxis. In the emergency department, I removed the rhino rocket from the left nares. I subsequently applied Afrin-soaked pledgets to the left nostril. These were removed. No active epistaxis was observed. I did note irritation and friable vessels on the left anterior nasal septum. I applied absorbable packing to the left nares (surgicel and fibrillar). For absorbable nasal packin. The patient has absorbable packing in place. This will be absorbed by the body in 1-2 weeks time. Do not attempt to remove the packing. 2. Please try not to sneeze. Instruct the patient to sneeze with the mouth open. Do NOT blow the nose. Any action that increases pressure inside the nose may cause the packing to dislodge 3. Please use the nasal saline sprays as directed below (four times a day) to help keep the packingmoist 4. No antibiotics are necessary for the type of packing that is in place 5. If the packing falls out naturally but there is no additional nosebleed, no additional intervention is necessary. The following strategies will help decrease the [...] with qtip or finger inside the nose. 7. Saline nasal spray QID 8. Salvador Med sinus rinse daily or BID 9. Anel geranium nasal spray BID For acute epistaxis: 1. Apply several sprays [...] above x 2, stop when nosebleed abates All questions from the patient and family were welcomed and answered to the best of my abilities. This case was discussed with Chief Resident refractive surgeon, Dr. Marjorie Young. Please do not hesitate to page [place] [phone]. Paty Butt MD Resident, Otolaryngology - Head and Neck Surgery [1] History reviewed. No pertinent past medical history. [2] Family History Problem Relation Name Age of Onset Cancer Mother Coronary artery disease Father Heart attack Father Hypertension Father Hyperlipidemia Father [3] Patient Active Problem List Diagnosis Hypercholesterolemia Dorsopathy Unspecified Phlebitis And Thrombophlebitis Of Other Sites Bartholin's Gland Cyst Chronic Obstructive Pulmonary Disease Exacerbation (HCC) Other Headache Syndrome Dyspnea Furuncle Buttock Dependence Nicotine Other Chest Pain Other Hypertrophic Osteoarthropathy Unspecified Site Other Specified Conduction Disorders Primary Osteoarthritis Hand [...] Male Unspecified Injury Right Vertebral Artery Initial Cosigned by Deonna Young M.D. at 04/04/2025 12:20 PM CDT documented in this encounter ED Notes * Manohar Bolanos M.D. - 04/03/2025 11:35 AM CDT I have personally seen and examined this patient. I have fully participated in the care of this patient. I have reviewed all clinical information including history, physical exam, orders, and plan. Antoninaee with the note of the resident. I personally performed the substantive portion of this service which was medical decision-making. Pertinent MDM details included below. Refer to the LATHE MACHINE OPERATOR/PA???s note for additional details. Assessment and Plan 5th visit to emergency department with the epistaxis in the last 24 hours. She appears to have a ananterior epistaxis. Will consult ENT.. DIFFERENTIAL DIAGNOSES CT head. PROBLEMS ADDRESSED THIS VISIT Epistaxis. I reviewed the following external records: inpatient records. Final Diagnoses: as of 04/03/25 1454 Epistaxis The following tests were considered but ultimately not performed: CT head. Escalation of care, including admission/observation, considered: I considered admission to the hospital given acuity of symptoms, but I think she can proceed as outpatient with close follow-up. . I discussed the management of the patient with: ENT. Manohar Bolanos M.D. 04/03/25 1136 Manohar Bolanos M.D. 04/03/25 1454 * Chapis Bates RJulietaNJulieta - 04/03/2025 11:35 AM CDT Patient presents by EMS from an outside ED for evaluation of multiple nose bleeds. Rhino rocket in place (Left nare) at time of arrival. Chapis Bates RJulietaN. 04/03/25 1139 * Sabina Manuel M.D. - 04/03/2025 11:30 AM CDT CHIEF COMPLAINT/REASON FOR VISIT Epistaxis (Nose Bleed) ASSESSMENT / PLAN Mrs. Phillips is a very pleasant 69 y.o. female who presents to the ED via EMS from [place] for evaluation of epistaxis that began yesterday at 3:00 a.m. without an obviously inciting event.. Patient was seen 3 times in [place], twice today. On the last visit rhino rocket was placed, and patient was discharged. Upon arrival home, patient began bleeding through the other nostril and aroundthe rhino rocket; CF transferred her to [place] for ENT evaluation. Patient endorses nose feeling congested but no difficulty breathing through the mouth. Not currently nauseated. Endorses some pain dueto the rhino rocket. On exam, patient is overall well-appearing. There is slow, dripping bleeding from the right naris, rhino rocket is in place in the left naris. There is clotting blood in the posterior oropharynx not obstructing the airway, and dried blood on the hard palate. Lungs clear to auscultation bilaterally. As we are still in the midst of Mrs. Phillips's workup, final disposition will be pending the resultsof his workup as well as reevaluation. 1347: Patient seen by ENT. Rhino rocket removed, nose packed. They recommend patient use saline spray 4 times daily for the next 2 weeks, recommend patient stop antibiotics prescribed by a previous facility, recommend sending Afrin to pharmacy for patient. Patient to use Afrin if she begins bleeding again, applied to both nostrils then clamped the nose for 15 minutes and then reapply. If the patient continues to bleed, she is to return to the emergency department. Patient agrees with the plan for discharge. Return precautions were given, and all patient questions were answered to the best of my ability. Sabina Manuel M.D. Resident 04/03/25 4038 documented in this encounter Plan of Treatment Not on file documented as of this encounter Visit Diagnoses Diagnosis Epistaxis- Primary documented in this encounter Administered Medications Inactive Administered Medications - up to 3 most recent administrations Medication Order MAR Action Action Date Dose Rate Site acetaminophen tablet 1,000 mg (TylenoL) 1,000 mg, oral, Once, On Sun04/03/25 at 1334, For 1 dose Given 04/03/2025 1:44 PM CDT 1,000 mg documented in this encounter Active and Recently Administered Medications Times are shown in CDT. Scheduled Medication Order 04/01/2025 04/02/2025 04/03/2025 acetaminophen tablet 1,000 mg (TylenoL) (COMPLETED) 1,000 mg, oral, Once, On Sun04/03/25 at 1334, For 1 dose 1344 (Given - Provid er: Audelia Sanderson., R.N.) documented in this encounter Care Teams Country Singer Relationship Specialty Start Date End Date Elsewhere, Pcp PCP - General Internal Medicine 04/03/25 documented as of this encounter
--- NOTE | 2025-04-29 14:00 | CRLHL7_ITS ---
For Patients: As a result of the Century Cures Act, medical imaging exams and procedure reports are released immediately into your electronic medical record. You may view this report before your referring provider. If you have questions, please contact your health care provider. INDICATION: BILATERAL SCREENING MAMMMOGRAM, ASYMPTOMATIC 70 Y/O FEMALE COMPARISON: 05/12/2019, 07/03/2011, 08/02/2010 TECHNIQUE: Digital mammogram in CC and MLO projections including computer-aided detection (CAD) and tomosynthesis. BREAST COMPOSITION: The breasts are almost entirely fatty. FINDINGS: No suspicious findings. ASSESSMENT: BI-RADS 2 Benign RECOMMENDATION: Annual screening mammogram. A lay language report of this examination will be provided to the patient. Dictated by: Arcadio Barraza MD @ 04/30/2025 10:49:32 (Electronically Signed)
--- NOTE | 2025-04-29 14:30 | CRLHL7_ITS ---
For Patients: As a result of the Century Cures Act, medical imaging exams and procedure reports are released immediately into your electronic medical record. You may view this report before your referring provider. If you have questions, please contact your health care provider. DXA BONE MINERAL DENSITY STUDY Reason for exam: Screening osteoporosis. Current height (in): 65. Weight (lb): 168. Menopause age: 31. Ethnicity: White. 1. Have you had a previous hip or vertebral fracture? Yes. 2. Have you had any fractures during your adult life which did not result from significant trauma (e.g., auto accident)? Yes. 3. Did either of your parents have a hip fracture? No. 4. Do you smoke? Yes. 5. Have you ever taken Glucocorticoids? No. 6. Do you have rheumatoid arthritis? No. 7. Do you have secondary osteoporosis? No. 8. Do you drink 3 or more alcoholic drinks per day? No. 9. Are you being treated for osteoporosis? No. 10. Have you ever taken any of the following medications: Actonel, Evista, Fosamax, Miacalcin, Reclast, Boniva, Forteo, HRT (i.e. estrogen/hormone therapy), Protelos, Prolia, Vitamin D, Calcium, other ??? please specify. ANSWER: No. 11. Do you have any of the following medical conditions: Anorexia or bulimia, asthma or emphysema, end stage renal disease, hyperparathyroidism, any seizure disorders, cancer, inflammatory bowel diseases, hysterectomy, other ??? please specify. ANSWER: Yes, hysterectomy. 12. What was your maximum height (inches)? 65. 13. Do you perform weight bearing exercise regularly? No. 14. Do you regularly consume dairy products? Yes. 15. Do you drink caffeinated beverages? No. 16. At what age did your period start? 11. 17. Are you premenopausal? No. 18. How many full-term pregnancies have you had? 3. 19. Have you ever missed your period for more than 6 months in a row (not including or menopause)? No. TECHNIQUE: Bone mineral density study was performed using the [facility]. FINDINGS: The results of the study expressed as bone mineral density (BMD) are as follows: Neck Left: BMD: 0.926 g/cm2. T-score: 0.7. Z-score: 2.5. Right: BMD: 0.826 g/cm2. T-score: -0.2. Z-score: 1.6. Total Left: BMD: 1.002 g/cm2. T-score: 0.5. Z-score: 2.1. Right: BMD: 0.934 g/cm2. T-score: -0.1. Z-score: 1.5. Radius Left 33%: BMD: 0.671 g/cm2. T-score: -0.4. Z-score: 1.8. IMPRESSION: Normal bone density. *Comparison exams done prior to 04/2020 were performed on different unit, [employer]. COMPARISON: Compared with scan of 05/12/2019, the bone mineral density has decreased by 4.0 percent at the hip. Arcadio Barraza M.D. Diagnostic Radiologist [email or web address]/Dictated by: Arcadio Barraza MD @ 04/30/2025 8:53:00 AM (Electronically Signed)
--- OUTSIDE RECORDS SUMMARY | 2025-04-30 00:14 | XMS_ITS | Encounter Summary ---
Author Organization [facility] Address [address] [place] [id number] Care Team Providers Care Banquet Coordinator Name Role Phone Elsewhere, Pcp Primary Care Provider Unavailabl e Encounter Details Date Type Department Care Team (Latest Contact Info) Description 04/03/2025 Clinical Communication Department of Otorhinolaryngology in [place], [place] [address] [place] [phone] Gurpreet Ma M.D. 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 Also, presented to ED since clinical writer spoke with patient's . * Telephone Encounter - Suri Louis R.N. - 04/03/2025 9:16 AM CDT Supervisor Ditching called patient's Gera as requested. Patient has no history of nose bleeds. Patient is not on any blood thinning medications. Gera stated that she had a bleed start prior to the firstED visit on 04/02/25. They used medication and packing to stop bleeding. Patient was discharged with no packing. Approximately 3 hours after being home, the nosebleed started again. They used a clampand was able to get the bleed to stop. Approx. 6 AM this morning, nosebleed started again. Unable to get it to stop. Patient presented to the ED again. They placed a balloon in the left nare and was discharged. Patient currently at home. Gera reports that patient is now having nose bleed from right nare. Supervisor Ditching discussed the following recommendations per Dr. Gurpreet Ma M.D. For active nosebleed: 1. Apply several sprays of oxymetazoline (Afrin) [...] above x 2, stop when nosebleed abates Any severe or persistent bleeding, present to emergency room. Made Gera aware that Dr. Gurpreet Ma M.D. is out of the clinic for a couple weeks. It is recommended patient be seen in ENT with having the balloon in place and continued bleeding. Call transferredto DOS to help schedule patient at alternative ENT site. documented in this encounter Plan of Treatment Not on file documented as of this encounter Visit Diagnoses Not on filedocumented in this encounter Care Teams Banquet Coordinator Relationship Specialty Start Date End Date Elsewhere, Pcp PCP - General Internal Medicine 04/03/25 documented as of this encounter
--- OUTSIDE RECORDS SUMMARY | 2025-04-30 00:15 | XMS_ITS | Clinical Summary ---
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 For routine questions regarding patient records, call [phone] during business hours, M-F 8:00 AM - 5:00 PM Central Time. 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 cranberry 400 mg capsule Cranberry oral tablet See Instructions, pateint unsure of dose but takes 3 pills in am and 3 pills in pm 09/21/20 12 Active cyclobenzaprine (for_FLEXERIL) 10 mg tablet Take 1 tablet (10 mg total) by mouth 3 (three) times a day as needed for muscle spasms for up to 10 days. 15 tablet 10/18/20 17 Active naproxen (NAPROSYN) 500 mg tablet Take 1 tablet (500 mg total) by mouth 2 (two) times a day with meals for 10 days. 20 tablet 10/31/20 20 Active simvastatin (Zocor) 40 mg tablet Take one a day for cholesterol 06/22/20 14 Active oxyCODONE (Roxicodone) 10 mg IR tablet Take 10 mg by mouth daily as needed. 08/11/20 [address] Active aspirin [address] tablet Take 1 tablet by mouth daily. Active gabapentin (Neurontin) 100 mg capsule Take 100 mg by mouth. 05/19/20 24 Active FLUoxetine (PROzac) 40 mg capsule 01/25/20 25 Active oxymetazoline (Afrin) 0.05 % nasal spray Administer 2 sprays into each nostril 2 (two) times a day. 30 mL 04/03/20 25 025 Active FLUoxetine (PROzac) 20 mg capsule Take 20 mg by mouth daily. 025 Discontinu ed(Dose adjustment ) amoxicillin-pot clavulanate (Augmentin) 875-125 mg per tabletIndicatio ns:Epistaxis Take 1 tablet by mouth 2 (two) times a day for 10 days. 20 tablet 04/03/20 25 025 Active Problems Problem Noted Date Diagnosed Date Abscess Vulva 08/19/2024 Overview (09/06/2024): Last Assessment & Plan: Start Doxycycline 1 tablet 2 x day for 10 days Start hot packing right Labia majora 3-4 times a day May take Tylenol/Ibuprofen for pain Furuncle Of Groin 08/19/2024 Aneurysm Cerebral Unruptured 07/24/2024 Fracture Cervical Fifth Nond isplaced Subsequent With Routine Healing 07/24/2024 Overview (09/06/2024): Last Assessment & Plan: Referral placed to [facility] Unspecified Injury Right Vertebral Artery Initia l 07/24/2024 Fear Of Flying 04/15/2024 Overview (09/06/2024): Last Assessment & Plan: May take 0.5 mg 30 minutes before taking off. If not helping, may take another 0.5 mg tablet. Migraine Without Aura Intractable With Status Mi grainosus 12/13/2023 Pain Cervical 12/13/2023 Thoracic Aortic Aneurysm Without Rupture Unspeci fied 11/29/2021 Menopausal And Female Climacteric States 022 Other Hydronephrosis 11/23/2021 Lower Abdominal Pain Unspecified 10/12/2021 Pain Low Back Chronic 10/12/2021 Stress Incontinence Female Male 10/12/2021 Bartholin's Gland Cyst 07/06/2020 Other Hypertrophic Osteoarthropathy Unspecified Site 07/06/2020 Primary Osteoarthritis Hand Right 07/06/2020 Restless Leg Syndrome 07/06/2020 Furuncle Buttock 04/16/2020 Other Specified Conduction Disorders 07/17/2019 Dyspnea 06/12/2019 Other Chest Pain 06/12/2019 Chronic Obstructive Pulmonary Disease Exacerbati on 03/07/2017 Other Headache Syndrome 07/13/2015 Hypercholesterolemia 01/31/2014 Overview (10/18/2017): Hypercholesteremia Dependence Nicotine 08/12/2013 Major Depressive Disorder, Recurrent, Unspecifie d 03/28/2013 Diverticulosis 02/20/2013 Dermatitis 02/05/2013 Phlebitis And Thrombophlebitis Of Other Sites Dorsopathy Unspecified 06/12/2006 Encounters Date Type Department Care Team Description 04/03/2025 11:22 AM CDT - 04/03/2025 1:47 PM CDT Emergency [facility] Emergency Department [address] [place] [phone] Manohar Bolanos M.D. Epistaxis (Primary Dx) Discharge Disposition: Home or Self Care 04/03/2025 9:32 AM CDT - 04/03/2025 10:56 AM CDT Emergency [facility] [address] [place] [phone] Yanira Sheikh, CONCHITA, C.N.P. Epistaxis (Primary Dx) Discharge Disposition: Acute Care Hospital 04/03/2025 6:43 AM CDT - 04/03/2025 8:16 AM CDT Emergency [facility] [address] [place] [phone] Tanner Andres P.A.-C. de Paulo, Kimberly A, APRN, C.N.P. Epistaxis (Primary Dx); Other Specified Disorders Of Nose And Nasal Sinuses Discharge Disposition: Home or Self Care 04/03/2025 Clinical Communication Department of Otorhinolaryngology in [address] [phone] Gurpreet Ma M.D. 04/02/2025 4:23 PM CDT - 04/02/2025 5:37 PM CDT Emergency [facility] [address] [place] [phone] Arcadio Herrmann APRN, C.N.P., D.N.P. Epistaxis (Primary Dx) Discharge Disposition: Home or Self Care from Last 3 Months Immunizations Immunization Administration Dates Next Due Influenza high dose QV(65 ye ars or older) (PF) 08/19/2020 PPSV23 05/27/2019,09/20/2005 Td Preservative Free (TENIVAC, DECAVAC) 04/22/20 19 Tdap 03/22/2009 influenza trivalent vaccine (6 months and older)(PF) 08/06/2016,08/12/2013 influenza vaccine quad (FLUZ ONE/FLUARIX) (6 months and older)(PF) 08/18/2019,09/02/2018,09/04/2017 Family History Medical History Relation Name Comments Coronary artery disease Father Heart attack Father Hyperlipidemia Father Hypertension Father Cancer Mother Relation Name Status Comments Father Mother Social History Tobacco Use Types Packs/Day Years Used Date Smoking Tobacco: Every Day Cigarettes Smokeless Tobacco: Never Tobacco Cessation:Ready to Q uit: Not Asked; Counseling Given: Not Answered Alcohol Use Standard Drinks/Week Comments No 0 (1 standard drink = 0.6 oz pur e alcohol) Comments No Sex and Gender Information Value Date Recorded Sex Assigned at Not on file 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 Gender Identity Not on file Sexual Orientation Not on file Last Filed Vital Signs Vital Sign Reading Time Taken Comments Blood Pressure 142/69 04/03/2025 1:00 PM CDT Pulse 69 04/03/2025 1:00 PM CDT Temperature 36.7 C (98.1 F) 04/03/2025 11:30 AM CDT Respiratory Rate 20 04/03/2025 11:30 AM CDT Oxygen Saturation 94% 04/03/2025 1:00 PM CDT Inhaled Oxygen Concentration - - Weight 75 kg (165 lb 5.5 oz) 04/03/2025 10:05 AM CDT Height 168 cm (5' 6.14) 09/21/2012 1:06 PM 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 OPERATOR Body Mass Index - - Plan of Treatment Health Maintenance Due Date Last Done Comments Bone Density Scan (Osteoporosis Screen) 1955 CT Colonography 1955 Cologuard 1955 Depression Monitoring (PHQ-9) 1955 FIT 1955 Hepatitis C Screening 1955 Tobacco Cessation counseling 1955 Zoster Vaccines (1 of 2) 2004 RSV vaccine - (32-36 weeks) or 60+ years (1 - Risk 60-74 years 1-dose series) 2014 Colonoscopy 01/23/2017 01/23/2007 Colorectal Cancer Screening 01/23/2017 Pneumococcal vaccine (50+ years) (2 of 2 - PCV) 05/27/2020 05/27/2019, 09/20/2005 COVID-19 Vaccine ( season) 2024 08/15/2022, 10/13/2021, 01/28/2021, Additional history exists Mammogram 07/19/2024 07/19/2023, 07/06, 03/06/2022 Depression Monitoring (PHQ-9 for quality tracking) 11/05/2024 Fall Risk Screen (Annual) 11/05/2024 Fasting Glucose for Diabetes Screening 04/03/2028 04/03/2025, 07/28/2024, 07/21/2024, Additional history exists Lipid (Cholesterol) Screening 07/25/2028 07/25/2023, 07/24/2022, 04/22/2019 DTaP,Tdap,and Td Vaccines (3 - Td or Tdap) 04/22/2029 04/22/2019, 03/22/2009 Influenza Vaccine Completed 09/08/2024, , 07/18/2022, Additional history exists IPV Vaccines Aged Out No longer eligi ble based on patient's age to complete this topic Procedures Procedure Name Priority Date/Time Associated Diagnosis Comments BASIC METABOLIC PANEL, S/P STAT 04/03/2025 9:47 AM CDT CBC WITH DIFFERENTIAL, B STAT 04/03/2025 9:47 AM CDT EPISTAXIS MANAGEMENT Routine 04/02/2025 4:45 PM CDT from Last 3 Months Results * (ABNORMAL) CBC with Differential, Blood (04/03/2025 [...] C.N.P. LAB BLOOD ADD-O N Final Result Performing Organization Address City/State/[facility] Co de Phone Number [facility] [address] [place] [address], [facility] [place] [address] * (ABNORMAL) Basic Metabolic Panel (04/03/2025 9:47 [...] AM CDT 04/03/2025 9:49 AM CDT us Trino Phillips APRNNJulietaPJulieta LAB BLOOD ADD-O N Final Result [facility] [address] [place] [id number], [facility] in [address] [address] * Epistaxis Management (04/02/2025 4:45 PM CDT) Narrative Arcadio Herrmann APRN, Susy.N.P., D.N.P. - 04/02/2025 4:45 PM CDT Arcadio Herrmann APRN, C.N.P., D.N.P. 04/02/2025 4:46 PM Epistaxis Management Performed by: Arcadio Herrmann APRN, Susy.N.P., D.N.P. Authorized by: Arcadio Herrmann APRN, Susy.N.PJulieta, D.N.P. PROCEDURE DETAILS Treatment method: anterior pack [...] immediate complication Arcadio Herrmann APRN, C.N.P., D.N.P. PROCEDURE/IL NOR SURGICAL ORDERABLES Final Result from Last 3 Months Insurance MEDICARE [facility] Care Teams Powdered Metal Supervisor Relationship Specialty Start Date End Date Elsewhere, Pcp PCP - General Internal Medicine 04/03/25
== END 2025-04-29 13:31 | disposition home or self-care (01) ==
LOC: MAMMO 13:32
PROVIDERS: PCP Nurse Practitioner Family; Visit Provider Nurse Practitioner Family
DX: Z12.31 Encounter for screening mammogram for malignant neoplasm of breast (principal); Z13.820 Encounter for screening for osteoporosis; Z78.0 Asymptomatic menopausal state
CPT/HCPCS: 77063; 77067; 77080

== ENCOUNTER 2025-05-29 06:23 | Outpatient (CLI) | payer MEDICARE, BC, SELFPAY | END 2025-05-29 06:24 | disposition home or self-care (01) | PROVIDERS: PCP Nurse Practitioner Family; Visit Provider Family Medicine | DX: R31.0 Gross hematuria (principal) | CPT/HCPCS: 87086 ==

== ENCOUNTER 2025-06-23 14:38 | Outpatient (CLI) | payer MEDICARE, BC, SELFPAY | END 2025-06-23 14:39 | disposition home or self-care (01) | PROVIDERS: PCP Nurse Practitioner Family; Visit Provider Nurse Practitioner Family | DX: R31.0 Gross hematuria (principal); R10.31 Right lower quadrant pain | CPT/HCPCS: 80053; 81001; 85025; 87086 ==

== ENCOUNTER 2025-06-24 07:20 | Outpatient (CLI) | payer MEDICARE, BC, SELFPAY ==
--- NOTE | 2025-06-24 08:00 | CRLHL7_ITS ---
For Patients: As a result of the Century Cures Act, medical imaging exams and procedure reports are released immediately into your electronic medical record. You may view this report before your referring provider. If you have questions, please contact your health care provider. INDICATION: Gross hematuria. Right lower quadrant soft tissue abdominal protrusion COMPARISON: None currently available for comparison TECHNIQUE: CT examination of the abdomen and pelvis was performed before and after the uneventful intravenous administration of 100 cc of Omnipaque 350. Thin section axial images were obtained from the lung bases through the pubic symphysis. Oral contrast was not administered. The study was performed with delayed imaging as per CT urogram protocol Please note that all CT scans at this facility use dose modulation, iterative reconstruction, and/or weight-based dosing when appropriate to reduce radiation dose to as low as reasonably achievable. FINDINGS: LUNG BASES: Bibasilar opacities are probably due to atelectasis.The heart size is normal at the lung bases. LIVER/BILIARY SYSTEM:The liver is normal in size and configuration. There is no focal mass and there is no intra- or extra hepatic biliary ductal dilatation.Hepatic steatosis. Normal-appearing gallbladder ADRENALS: Normal KIDNEYS, URETERS and BLADDER:Normal-sized kidneys. No intrarenal calculi on the left. Small 3 millimeter calculus right lower pole. No evidence of current or recent obstructive uropathy on either side. Left upper pole renal cyst measuring 1.4 centimeters. No solid cortical mass observed. No filling defects identified within the upper tracts or urinary status visualized. The partially but incompletely opacified bladder shows no evident abnormality. SPLEEN:Normal appearance. PANCREAS: Appears normal. RETROPERITONEUM and MESENTERY: There is no mass, adenopathy or aortic aneurysm. Atherosclerotic vascular calcification GASTROINTESTINAL SYSTEM: There is no evidence of diverticulitis, colitis, mechanical obstruction, or appendicitis. The small bowel as visualized appears normal.Fecal retention. Diverticulosis. No evidence of diverticulitis. Postoperative change noted PELVIS: No mass, adenopathy or free fluid. OSSEOUS STRUCTURES and ABDOMINAL WALL: There is an age-appropriate appearance of the osseous structures.Small fat containing umbilical hernia measuring about 1.5 centimeters. A larger hernias noted just above and to the right of the umbilicus measuring about 6.4 centimeters. This contains only omental fat OTHER: No free fluid or free air. IMPRESSION: 1. Basilar opacities probably due to atelectasis. 2. Hepatic steatosis. 3. Normal-sized kidneys. Small 3 millimeter intrarenal calculus on the right. No evidence of current or recent obstructive uropathy. There is a 1.4 centimeter left renal cyst. No visible solid renal cortical mass. No filling defect identified within the upper tracts or ureters as visualized. The incompletely opacified bladder shows no filling defect. No definite cause for gross hematuria on this exam. 4. Fat containing ventral hernias as described above. 5. Postoperative change of the bowel. Diverticulosis. Please note that all CT scans at this facility use dose modulation, iterative reconstruction, and/or weight-based dosing when appropriate to reduce radiation dose to as low as reasonably achievable. Dictated by Manohar Morales MD @ 06/24/2025 8:28:02 AM (Electronically Signed)
== END 2025-06-24 07:21 | disposition home or self-care (01) ==
LOC: CT 07:21
PROVIDERS: PCP Nurse Practitioner Family; Visit Provider Nurse Practitioner Family
DX: R31.0 Gross hematuria (principal); K76.0 Fatty (change of) liver, not elsewhere classified; N20.0 Calculus of kidney; N28.1 Cyst of kidney, acquired; K43.9 Ventral hernia without obstruction or gangrene; K57.90 Diverticulosis of intestine, part unspecified, without perforation or abscess without bleeding
CPT/HCPCS: 74178; Q9967

== ENCOUNTER 2025-08-03 13:32 | Outpatient (CLI) | payer MEDICARE, BC, SELFPAY ==
--- NOTE | 2025-08-03 14:30 | MR_ITS ---
Patient: DANNY AYALA Facility:?[facility] Patient ID:?[id number] Site Patient ID:?[id number]. Site :?1955 Study:?MRI-Head Angio W/O-08/03/2025 3:24:47 PM Ordering Physician:Charles Bolivar Final Report: EXAMINATION: MRA HEAD WITHOUT CONTRAST DATE: 08/03/2025. HISTORY: Patient with known brain aneurysm. TECHNIQUE: 3D TOF MRA of the head was performed. COMPARISON: CTA 07/21/2024. 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 There are no new aneurysms. The rest of the intracranial vasculature is unremarkable. 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 Osmel Rand M.D. Neurointerventional Radiologist [facility] Pager: Office/Referrals: [facility]: Dictated by: Osmel Rand MD @ 08/03/2025 17:25:59 (Electronic Signature)
== END 2025-08-03 13:33 | disposition home or self-care (01) ==
LOC: MRI 13:32
PROVIDERS: PCP Nurse Practitioner Family; Visit Provider Neurological Surgery
DX: I67.1 Cerebral aneurysm, nonruptured (principal)
CPT/HCPCS: 70544

== ENCOUNTER 2025-09-22 11:52 | Outpatient (CLI) | payer MEDICARE, BC, SELFPAY | END 2025-09-22 11:53 | disposition home or self-care (01) | PROVIDERS: PCP Nurse Practitioner Family; Visit Provider Nurse Practitioner Family | DX: R31.0 Gross hematuria (principal); R55 Syncope and collapse | CPT/HCPCS: 80048; 81001; 84484; 87086 ==

== ENCOUNTER 2025-10-05 14:14 | Outpatient (CLI) | payer MEDICARE, BC, SELFPAY ==
[2025-10-05] MEDS: PERFLUTREN LIPID MICROSPHERES 2 ML VIAL IVP (15:54)
== END 2025-10-05 14:15 | disposition home or self-care (01) ==
LOC: RAD 14:15
PROVIDERS: PCP Nurse Practitioner Family; Visit Provider Nurse Practitioner Family
DX: R55 Syncope and collapse (principal); R01.1 Cardiac murmur, unspecified
CPT/HCPCS: 93306; Q9957